=== PATIENT | female | born 1935 | race Hispanic/Latino ===

== ENCOUNTER 2017-07-21 00:01 | Inpatient (IN) | payer MEDICAID, MEDICARE ==
[~2017-07-21] VITALS: Ht 162.6 cm; Wt 61.2 kg
[2017-07-21] MEDS ORDERED: SODIUM CHLORIDE 0.9% 1000ML 1,000 ML IV SCH (00:30)
[2017-07-21] MEDS ORDERED: POTASSIUM CHLORIDE 20 MEQ TAB CR PO STA (01:03)
[2017-07-21] MEDS ORDERED: CLONIDINE HCL 0.1 MG TAB PO ONE (01:30)
[2017-07-21] MEDS ORDERED: ONDANSETRON HCL INJ 2 MG/ML VIAL IV PRN (01:45)
[2017-07-21] MEDS ORDERED: SODIUM CHLORIDE 0.9% 1000ML 1,000 ML IV ONE (03:15)
[2017-07-21 03:30] VITALS: BP 159/78
[2017-07-21 04:00] VITALS: BP 159/78
[2017-07-21] MEDS: SOD CHL 0.45%/POT CHL 20MEQ 1,000 ML IV SCH ×2 (04:00→21:45)
[2017-07-21] MEDS: DIPHENOXYLATE/ATROPINE TAB PO PRN (05:33)
[2017-07-21] MEDS: LEVOFLOXACIN 750MG/D5W 150ML 150 ML IV SCH (08:15)
[2017-07-21 08:38] VITALS: BP 146/74
[2017-07-21] MEDS: METOPROLOL TARTRATE 50 MG TAB PO SCH ×3 (09:00→20:51)
[2017-07-21] MEDS: FAMOTIDINE 20 MG/2 ML VIAL IV SCH ×2 (09:00→17:00)
[2017-07-21 09:10] LABS: BASOPHILS % 0.7 % (0.0-1.0); EOSINOPHILS % 0.5 % (0.0-6.0); HEMATOCRIT 38.8 % (34.2-44.1); HEMOGLOBIN 12.7 g/dL (12.0-16.0); LYMPHOCYTES # (AUTO) 1.1 (1.0-3.2); LYMPHOCYTES % 27.3 % (18.0-39.1); MEAN CORPUSCULAR HEMOGLOBIN 28.6 pg (28-32); MEAN CORPUSCULAR HGB CONC 32.7 g/dL (31-35); MEAN CORPUSCULAR VOLUME 87.4 fL (81-99); MONOCYTES # (AUTO) 0.5 (0.2-0.8); MONOCYTES % 11.1 % (4.4-11.3); NEUTROPHILS # (AUTO) 2.5 (2.1-6.9); NEUTROPHILS % 60.2 % (38.7-80.0); PLATELET COUNT 141 x10e3/uL (140-360); RED BLOOD COUNT 4.44 x10e6/uL (3.6-5.1); RED CELL DISTRIBUTION WIDTH 13.3 % (11.7-14.4)
--- NOTE | 2017-07-21 09:13 | History and Physical ---
PRIMARY CARE PHYSICIAN: None. CHIEF COMPLAINT: Watery diarrhea. HISTORY OF PRESENT ILLNESS: This 82-year-old woman with no significant medical history recently went to [place], now developing watery diarrhea about 6 times a day, prompting a visit to the hospital. No abdominal pain. No nausea or vomiting. The patient has not had this in the past. No known sick contacts. The patient went to urgent care facility at [facility] and was transferred here for further management. She was found to have severe hypokalemia. PAST MEDICAL HISTORY: None. PAST SURGICAL HISTORY: None. ALLERGIES: NO KNOWN DRUG ALLERGIES. FAMILY HISTORY/SOCIAL HISTORY: The patient has 13 children. No alcohol or illicits. MEDICATIONS: Per electronic medical record. REVIEW OF SYSTEMS: Denies any chest pain or abdominal pain. PHYSICAL EXAMINATION VITAL SIGNS: Have been reviewed. Blood pressure 185/94. GENERAL: A tired-appearing woman resting in bed. HEENT: Anicteric. CARDIOVASCULAR: Normal S1 and S2. LUNGS: Moderate breath sounds. ABDOMEN: Soft, nondistended. No tenderness on palpation. EXTREMITIES: No edema. SKIN: Dry. PSYCHIATRIC: Flat affect. NEUROLOGIC: Alert, awake and appropriate. LABS: Reviewed. MEDICATIONS: Reviewed. ASSESSMENT AND PLAN: An 82-year-old woman. 1. Acute diarrhea. Will use Flagyl and Levaquin. Will obtain C. difficile. 2. Hypokalemia, which is severe. Replace and recheck. 3. Elevated blood pressure. She actually has chronic hypertension. Will treat. 4. Will obtain labs this morning. 5. Prophylaxis: Will use SCDs and Pepcid. 6. Disposition: Monitor closely. Job#: [id number]
[2017-07-21 09:29] LABS: MAGNESIUM 1.5 MG/DL (1.3-2.1); PHOSPHORUS 2.8 MG/DL (2.3-4.7)
[2017-07-21 09:31] LABS: ALANINE AMINOTRANSFERASE 24 IU/L (0-55); ALBUMIN 3.1 g/dL (3.5-5.0); ALBUMIN/GLOBULIN RATIO 0.9 (0.8-2.0); ALKALINE PHOSPHATASE 76 IU/L (40-150); ANION GAP 11.4 mmol/L (8-16); BLOOD UREA NITROGEN 11 mg/dL (7-26); BUN/CREATININE RATIO 16 (6-25); CALCIUM 8.5 mg/dL (8.4-10.2); CARBON DIOXIDE 23 mmol/L (22-29); CHLORIDE 98 mmol/L (98-107); CREATININE, SERUM 0.68 mg/dL (0.57-1.11); EST GLOMERULAR FILTRATION RATE > 60 ML/MIN (60-); GLUCOSE 146 mg/dL (74-118); POTASSIUM 3.4 mmol/L (3.5-5.1); SODIUM 129 mmol/L (136-145)
--- NOTE | 2017-07-21 09:55 | Diagnostic Imaging Report ---
PROCEDURE:X-RAY ABDOMEN - KUB COMPARISON:None. INDICATIONS:DIARRHEA FINDINGS: There is a non-obstructed bowel-gas pattern. Radiodense foci project in the right hemicolon, likely representing ingested contents. There are no calcifications projected over the renal shadows, expected course of the ureters or bladder. Phleboliths project over the pelvis. Degenerative changes of the lumbar spine. There are no acute osseous abnormalities. The lung bases are clear. CONCLUSION: No acute radiographic abnormality. Dictated by: Ian Loera M.D. on 07/21/2017 at 9:55 Electronically approved by: Ian Loera M.D. on 07/21/2017 at 9:55
[2017-07-21] MEDS: METRONIDAZOLE 500MG/NS 100ML 100 ML IV SCH ×2 (10:00→18:00)
[2017-07-21 11:39] LABS: BAND NEUTROPHILS % (MANUAL) 10 %; LYMPHOCYTES % (MANUAL) 30 % (19-48); MONOCYTES % (MANUAL) 12 % (3.4-9.0); NEUTROPHILS % (MANUAL) 48 % (40-74)
[2017-07-21 11:42] LABS: ANISOCYTOSIS SLIGHT; HOWELL-JOLLY BODIES FEW; HYPOCHROMASIA SLIGHT; RBC MORPHOLOGY COMMENT NORMAL
[2017-07-21 11:43] LABS: PLATELET ESTIMATE SLIGHTLY DECREASED; PLATELET MORPHOLOGY COMMENT NORMAL
[2017-07-21 12:16] VITALS: BP 163/79
[2017-07-21 15:39] VITALS: BP 179/86
[2017-07-21 20:29] VITALS: BP 196/93
[2017-07-21] MEDS ORDERED: METOPROLOL TARTRATE 50 MG TAB PO ONE (20:45)
[2017-07-21] MEDS ORDERED: LABETALOL HCL 100 MG TAB PO SCH (21:00)
[2017-07-22] VITALS (8 sets, daily range): BP systolic 113–190; BP diastolic 73–98
[2017-07-22] MEDS: METRONIDAZOLE 500MG/NS 100ML 100 ML IV SCH ×3 (02:00→17:32)
[2017-07-22] MEDS: NIFEDIPINE CR 30 MG TAB PO SCH ×3 (03:45→20:57)
[2017-07-22] MEDS: DIPHENOXYLATE/ATROPINE TAB PO PRN ×2 (04:43→20:58)
[2017-07-22 06:55] LABS: BASOPHILS # (AUTO) 0.1 (0.0-0.1); BASOPHILS % 0.9 % (0.0-1.0); EOSINOPHILS % 0.2 % (0.0-6.0); HEMATOCRIT 39.1 % (34.2-44.1); HEMOGLOBIN 12.9 g/dL (12.0-16.0); LYMPHOCYTES # (AUTO) 1.4 (1.0-3.2); LYMPHOCYTES % 26.5 % (18.0-39.1); MEAN CORPUSCULAR HEMOGLOBIN 28.8 pg (28-32); MEAN CORPUSCULAR VOLUME 87.3 fL (81-99); MONOCYTES # (AUTO) 0.6 (0.2-0.8); NEUTROPHILS # (AUTO) 3.3 (2.1-6.9); PLATELET COUNT 161 x10e3/uL (140-360); RED BLOOD COUNT 4.48 x10e6/uL (3.6-5.1); RED CELL DISTRIBUTION WIDTH 13.1 % (11.7-14.4)
[2017-07-22 07:20] LABS: ANION GAP 13.6 mmol/L (8-16); BLOOD UREA NITROGEN 7 mg/dL (7-26); BUN/CREATININE RATIO 11 (6-25); CALCIUM 8.7 mg/dL (8.4-10.2); CARBON DIOXIDE 23 mmol/L (22-29); CHLORIDE 104 mmol/L (98-107); CREATININE, SERUM 0.61 mg/dL (0.57-1.11); EST GLOMERULAR FILTRATION RATE > 60 ML/MIN (60-); GLUCOSE 104 mg/dL (74-118); POTASSIUM 3.6 mmol/L (3.5-5.1); SODIUM 137 mmol/L (136-145)
[2017-07-22] MEDS: SOD CHL 0.45%/POT CHL 20MEQ 1,000 ML IV SCH ×2 (07:45→17:32)
--- NOTE | 2017-07-22 08:24 | Diagnostic Imaging Report ---
PROCEDURE: CHEST SINGLE (PORTABLE) COMPARISON: None. INDICATIONS: SHORTNESS OF BREATH. DIARRHEA FINDINGS: LUNGS: Mild/moderate central pulmonary vascular congestion. Poor inspiration. PLEURA: No effusions or pneumothorax. HEART \T\ MEDIASTINUM: Heart is mildly enlarged with prominence and tortuosity of the thoracic aorta. BONES \T\ SOFT TISSUES: No acute findings. CONCLUSION: Cardiomegaly with central pulmonary vascular congestion. Myke Richey D.O. Dictated by: Myke Richey D.O. on 07/22/2017 at 8:24 Electronically approved by: Myke Richey D.O. on 07/22/2017 at 8:24
[2017-07-22 08:58] LABS: BAND NEUTROPHILS % (MANUAL) 9 %; LYMPHOCYTES % (MANUAL) 20 % (19-48); MONOCYTES % (MANUAL) 14 % (3.4-9.0); NEUTROPHILS % (MANUAL) 47 % (40-74)
[2017-07-22 08:59] LABS: ANISOCYTOSIS SLIGHT; HOWELL-JOLLY BODIES FEW; HYPOCHROMASIA SLIGHT; PLATELET ESTIMATE ADEQUATE; PLATELET MORPHOLOGY COMMENT FEW LARGE; RBC MORPHOLOGY COMMENT NORMAL
[2017-07-22] MEDS: METOPROLOL TARTRATE 50 MG TAB PO SCH ×2 (09:00→20:58)
[2017-07-22] MEDS: FAMOTIDINE 20 MG/2 ML VIAL IV SCH ×2 (09:00→17:32)
[2017-07-22] MEDS: LEVOFLOXACIN 750MG/D5W 150ML 150 ML IV SCH (09:00)
[2017-07-23] VITALS (7 sets, daily range): BP systolic 122–167; BP diastolic 58–89
[2017-07-23] MEDS: SOD CHL 0.45%/POT CHL 20MEQ 1,000 ML IV SCH ×3 (01:25→23:54)
[2017-07-23] MEDS: METRONIDAZOLE 500MG/NS 100ML 100 ML IV SCH ×3 (02:28→17:02)
[2017-07-23] MEDS ORDERED: ALPRAZOLAM 0.25 MG TAB PO SCH (06:00)
[2017-07-23 06:09] LABS: BASOPHILS # (AUTO) 0.1 (0.0-0.1); BASOPHILS % 0.7 % (0.0-1.0); EOSINOPHILS % 0.4 % (0.0-6.0); HEMATOCRIT 37.1 % (34.2-44.1); HEMOGLOBIN 12.5 g/dL (12.0-16.0); LYMPHOCYTES # (AUTO) 1.7 (1.0-3.2); LYMPHOCYTES % 22.6 % (18.0-39.1); MEAN CORPUSCULAR HEMOGLOBIN 29.1 pg (28-32); MEAN CORPUSCULAR HGB CONC 33.7 g/dL (31-35); MEAN CORPUSCULAR VOLUME 86.5 fL (81-99); MONOCYTES # (AUTO) 1.1 (0.2-0.8); MONOCYTES % 14.6 % (4.4-11.3); NEUTROPHILS # (AUTO) 4.5 (2.1-6.9); NEUTROPHILS % 61.2 % (38.7-80.0); PLATELET COUNT 159 x10e3/uL (140-360); RED BLOOD COUNT 4.29 x10e6/uL (3.6-5.1); RED CELL DISTRIBUTION WIDTH 13.2 % (11.7-14.4)
[2017-07-23 06:31] LABS: ANION GAP 12.4 mmol/L (8-16); BLOOD UREA NITROGEN 5 mg/dL (7-26); BUN/CREATININE RATIO 8 (6-25); CALCIUM 8.5 mg/dL (8.4-10.2); CARBON DIOXIDE 24 mmol/L (22-29); CHLORIDE 104 mmol/L (98-107); EST GLOMERULAR FILTRATION RATE > 60 ML/MIN (60-); GLUCOSE 102 mg/dL (74-118); POTASSIUM 3.4 mmol/L (3.5-5.1); SODIUM 137 mmol/L (136-145)
[2017-07-23] MEDS ORDERED: ALPRAZOLAM 0.25 MG TAB PO PRN (07:30)
[2017-07-23] MEDS ORDERED: LOPERAMIDE HCL 2 MG CAP PO PRN (07:45)
--- NOTE | 2017-07-23 08:03 | Progress Note ---
DATE: July 23, 2017 OVERNIGHT: The patient had a little bit of diarrhea. REVIEW OF SYSTEMS: Denies any chest pain. PHYSICAL EXAMINATION VITAL SIGNS: Reviewed. GENERAL: A tired-appearing woman resting in bed. HEENT: Anicteric. CARDIOVASCULAR: Normal S1 and S2. LUNGS: Moderate breath sounds. ABDOMEN: Soft, nontender and nondistended. EXTREMITIES: No edema. SKIN: Dry. PSYCHIATRIC: Flat affect. LABS: Reviewed. MEDICATIONS: Reviewed. ASSESSMENT: An 82-year-old woman with: 1. Acute diarrhea. 2. Hypokalemia. 3. Elevated blood pressure. PLAN 1. Severe hyponatremia has improved. 2. Hypokalemia is improving. Will replace potassium again this morning. 3. Continue antibiotics. 4. Diarrhea is improving. 5. C. diff testing is negative. 6. Use Imodium p.r.n. 7. Physical therapy. Out of bed to chair. 8. Negative C. diff testing. 9. Discharge planning. Job#: [id number] [place]
[2017-07-23] MEDS ORDERED: POTASSIUM CHLORIDE 20 MEQ TAB CR PO ONE (08:15)
[2017-07-23] MEDS: FAMOTIDINE 20 MG/2 ML VIAL IV SCH (09:17)
[2017-07-23] MEDS: NIFEDIPINE CR 30 MG TAB PO SCH ×2 (09:17→21:15)
[2017-07-23] MEDS: METOPROLOL TARTRATE 50 MG TAB PO SCH ×2 (09:17→21:15)
[2017-07-23] MEDS: LEVOFLOXACIN 750MG/D5W 150ML 150 ML IV SCH (09:17)
[2017-07-23] MEDS: FAMOTIDINE 20 MG TAB PO SCH (16:06)
[2017-07-23 17:08] LABS: BILIRUBIN,URINE NEGATIVE (NEGATIVE); CLARITY,URINE CLEAR (CLEAR); COLOR,URINE YELLOW (YELLOW); KETONES,URINE NEGATIVE (NEGATIVE); LEUKOCYTE ESTERASE ,URINE 1+ (NEGATIVE); NITRITE,URINE NEGATIVE (NEGATIVE); PROTEIN,URINE DIPSTICK NEGATIVE (NEGATIVE); URINE UROBILINOGEN 0.2 mg/dL (0.2 - 1)
[2017-07-23 17:21] LABS: BACTERIA,URINE RARE /HPF; EPITHELIAL CELLS,URINE FEW /LPF; RBC,URINE 0-5 /HPF (0-5)
[2017-07-24] VITALS: BP 140/81
[2017-07-24 00:27] VITALS: BP 140/81
[2017-07-24] MEDS: METRONIDAZOLE 500MG/NS 100ML 100 ML IV SCH (01:18)
[2017-07-24 04:00] VITALS: BP 149/88
[2017-07-24] MEDS ORDERED: METOPROLOL TART50 MG PO (06:40)
[2017-07-24] MEDS ORDERED: ZOFRAN ODT4 MG PO (06:40)
[2017-07-24] MEDS ORDERED: ALPRAZOLAM0.25 MG PO (06:40)
[2017-07-24] MEDS ORDERED: IMODIUM2 MG PO (06:40)
[2017-07-24] MEDS ORDERED: FAMOTIDINE20 MG PO (06:40)
[2017-07-24] MEDS ORDERED: NIFEDIPINE ER30 M1 PO (06:40)
[2017-07-24] MEDS ORDERED: LEVAQUIN500 MG PO (06:42)
[2017-07-24] MEDS ORDERED: FLAGYL500 MG PO (06:42)
[2017-07-24 08:00] VITALS: BP 143/87
--- NOTE | 2017-07-24 08:26 | Discharge Summary ---
PRINCIPAL DIAGNOSES 1. Acute diarrhea. 2. Hypokalemia. 3. Elevated blood pressure. 4. Severe hyponatremia. 5. Clostridium difficile negative diarrhea. 6. Ambulatory dysfunction and physical deconditioning. SECONDARY DIAGNOSIS: None. CHIEF COMPLAINT: Watery diarrhea. HISTORY OF PRESENT ILLNESS: An 82-year-old woman with watery diarrhea. Refer to the H and P for further details. HOSPITAL COURSE: The patient had watery diarrhea. Clostridium difficile testing was negative. The patient received Flagyl, Levaquin and Imodium. Also, physical deconditioning and received physical therapy. Hypokalemia was replaced. Elevated blood pressure was treated with medication regimen. The patient is doing better and currently appropriate for discharge and follow up. DISCHARGE MEDICATIONS: Per electronic medical record. FOLLOWUP: With me in 1 week. CONDITION ON DISCHARGE: Stable and improving. DISCHARGE LOCATION: Home with physical therapy. KAMI PETE MD Job#: [id number] MD
[2017-07-24] MEDS: SOD CHL 0.45%/POT CHL 20MEQ 1,000 ML IV SCH (09:45)
[2017-07-24] MEDS: FAMOTIDINE 20 MG TAB PO SCH (09:47)
[2017-07-24] MEDS: METOPROLOL TARTRATE 50 MG TAB PO SCH (09:48)
[2017-07-24] MEDS: NIFEDIPINE CR 30 MG TAB PO SCH (09:48)
[2017-07-24 12:00] VITALS: BP 144/95
== END 2017-07-24 12:42 | disposition home or self-care (01) | DRG 392 ==
LOC: FSED 00:01 → MED/SURG2 02:34
PROVIDERS: ADMIT Internal Medicine; ATTEND Internal Medicine
DX: R19.7 Diarrhea, unspecified (principal); E87.1 Hypo-osmolality and hyponatremia; E87.6 Hypokalemia; R26.9 Unspecified abnormalities of gait and mobility; R03.0 Elevated blood-pressure reading, without diagnosis of hypertension
CPT/HCPCS: 36415; 71045; 74018; 80048; 80053; 81001; 82948; 83735; 84100; 84132; 85025; 87045; 87493; 93005; 97139; 99284